=== PATIENT | male | born 1975 | race Caucasian/White ===

== ENCOUNTER → 2016-05-02 | Outpatient (CLI) | payer BC ==
[~2016-05-02] MED LIST: ATV5 PO; GABA-112 PO; GLC500 PO; PRLSR20 PO
--- NOTE | 2016-05-02 16:31 | DIAGNOSTIC IMAGING REPORT ---
KUB HISTORY: N20.0 [id number] COMPARISON: KUB 10/01/2014. FINDINGS: The bowel gas pattern is unremarkable. There are no dilated loops of small bowel to suggest an obstruction. No renal calculi. No ureteral calculi. Calcifications in the deep pelvis likely represent phleboliths. These remain unchanged. No pneumoperitoneum or pneumatosis. IMPRESSION: No renal or ureteral stones. Electronically signed by: Tonio Parra M.D. 05/02/2016 4:30 PM Dictated Date/Time: 05/02/2016 4:29 PM
== END | disposition home or self-care (01) ==
LOC: C.RAD 15:54
PROVIDERS: ATTEND Urology
DX: N20.0 Calculus of kidney (principal)

== ENCOUNTER → 2016-05-10 | Outpatient (CLI) | payer BC ==
--- NOTE | 2016-05-10 11:44 | DIAGNOSTIC IMAGING REPORT ---
ULTRASOUND RIGHT UPPER QUADRANT ABDOMEN CLINICAL HISTORY: Right upper quadrant abdominal pain. COMPARISON STUDY: Abdominal CT dated 01/10/2014. TECHNIQUE: Real-time, grayscale, and color flow sonography of the right upper quadrant of the abdomen was performed. Images are reviewed in the transverse and longitudinal planes. FINDINGS: Liver: The liver is enlarged and demonstrates heterogeneously increased echotexture consistent with severe hepatic steatosis. Note that this degrades acoustic penetration of liver. There is no intrahepatic biliary ductal dilatation. The main portal vein is patent. Gallbladder: The gallbladder is normal in appearance. No gallstones are identified. There is no gallbladder wall thickening or pericholecystic fluid. A sonographic Andrade's sign is reportedly absent. The common bile duct measures up to 0.5 cm in diameter. Pancreas: Visualized portions of the pancreatic head and body are normal in appearance. The splenic vein is patent. Right kidney: Survey images of the right kidney demonstrate normal size and echotexture. There is no hydronephrosis. Ascites: None. IMPRESSION: 1. No acute sonographic amount is identified. No gallstones are seen. 2. Hepatomegaly and severe hepatic steatosis. Electronically signed by: Ascencion Smith M.D. 05/10/2016 11:43 AM Dictated Date/Time: 05/10/2016 11:42 AM
== END | disposition home or self-care (01) ==
LOC: C.ULTR 11:08
PROVIDERS: ATTEND Physician Assistant
DX: R10.11 Right upper quadrant pain (principal); R16.0 Hepatomegaly, not elsewhere classified; K76.0 Fatty (change of) liver, not elsewhere classified

== ENCOUNTER → 2017-04-29 | Day surgery (SDC) | payer BC ==
[2017-04-16 15:09] VITALS: BMI 37.0
--- NOTE | 2017-04-16 15:35 | PAT Medication Instructions ---
Service Date Apr 16, 2017. Current Home Medication List Fenofibrate (Tricor), 54 MG PO QPM Ibuprofen Tab (Advil), 400 MG PO QD PRN for Pain Krill Oil (Krill Oil), 1 CAP PO QAM Metformin HCl (Metformin HCl), 1 TAB PO QPM Multivitamin (Multivitamin), 1 TAB PO QAM Omeprazole (Prilosec), 20 MG PO QAM Potassium Citrate (Alkalinizer (Potassium Citrate ER), 1 TAB PO BID Medication Instructions For Your Scheduled Surgery -Contact your surgeon for instructions for: Ibuprofen Tab (Advil), 400 MG PO QD PRN for Pain - Hold the following medications 2 weeks prior to surgery: Krill Oil (Krill Oil), 1 CAP PO QAM - Hold the following medications the night before surgery: Fenofibrate (Tricor), 54 MG PO QPM - Hold the following medications the morning of surgery: Potassium Citrate (Alkalinizer (Potassium Citrate ER), 1 TAB PO BID Multivitamin (Multivitamin), 1 TAB PO QAM - Take the following medications the morning of surgery with a sip of water: Omeprazole (Prilosec), 20 MG PO QAM - Take the following medications as scheduled the night before surgery: Metformin HCl (Metformin HCl), 1 TAB PO QPM Potassium Citrate (Alkalinizer (Potassium Citrate ER), 1 TAB PO BID If you have any questions please call us at [phone] or [phone] or [phone]
[2017-04-16 16:42] LABS: CALCIUM 9.1 mg/dl (8.5-10.1); CREATININE 0.98 mg/dl (0.60-1.40); POTASSIUM 4.6 mmol/L (3.5-5.1)
[2017-04-16 16:45] LABS: HEMATOCRIT 42.6 % (42-52); HEMOGLOBIN 14.1 g/dL (14.0-18.0); MEAN CELL VOLUME 87.5 fL (80-100); MEAN CORPUSCULAR HGB CONC 33.1 g/dl (32-36); PLATELET COUNT 397 K/uL (130-400); RED CELL DISTRIBUTION WIDTH CV 14.2 % (11.5-14.5); RED CELL DISTRIBUTION WIDTH SD 45.2 fL (36.4-46.3); WHITE BLOOD COUNT 8.25 K/uL (4.8-10.8)
[2017-04-16 17:06] LABS: BASO % 0.5 %; BASO ABS # 0.04 K/uL (0-0.2); EOS % 4.4 %; EOS ABS # 0.36 K/uL (0-0.5); IG# 0.02 K/uL (0.00-0.02); LYMPH % 27.8 %; LYMPH ABS # 2.29 K/uL (1.2-3.4); MONO % 15.4 %; MONO ABS # 1.27 K/uL (0.11-0.59); NEUT % 51.7 %; NEUT ABS # 4.27 K/uL (1.4-6.5)
[~2017-04-29] VITALS: Ht 167.6 cm; Wt 105.5 kg
[~2017-04-29] MED LIST changes: +ATROPINE SULFATE 0.1 MG/ML 5ML SYR IV PRN; -ATV5 PO; +BACITRACIN 50000 UNIT VIAL ONE; +BUPIVACAINE 0.5 % 5 MG/1 ML MPF 30ML VIAL ONE; +DEXAMETHASONE SOD INJ 4 MG/ML VIAL ONE; +EpHEDrine SULFATE INJ 50 MG/ML AMP IV PRN; +FENO54TA PO; +FENTANYL CITRATE INJ 50 MCG/1 ML 2 ML VIAL ONE; -GABA-112 PO; +GLYCOPYRROLATE INJ 0.2 MG/ML VIAL ONE; +HYDROmorphone INJ 0.5 MG/0.5 ML SYR IV PRN; +IBUP-103 PO; +KETOROLAC TROMETHAMINE 30 MG/ML VIAL ONE; +KRIL1000 PO; +LACTATED RINGER'S 1000ML 1,000 ML IV SCH; +LACTATED RINGER'S 1000ML 500 ML IV SCH; +LIDOCAINE 2% 20 MG/ML 5ML SYR IV ONE; +MIDAZOLAM HCL 1 MG/ML 2ML VIAL ONE; +MULT-506 PO; +MoRPHine SULFATE 2 MG/ML CARP IV PRN; +NEOSTIGMINE METHYLSULFATE 5 MG/5 ML SYR ONE; +ONDANSETRON INJ 2 MG/ML 2 ML VIAL IV PRN; +ONDANSETRON INJ 2 MG/ML 2 ML VIAL ONE; +OXYC-57 PO; +OXYCODONE/ACETAMINOPHEN 5-325 TAB ONE; +OXYCODONE/ACETAMINOPHEN 5-325 TAB PO PRN; +PHENYLEPHRINE 100MCG/ML 5ML SYR IV PRN; +PHENYLEPHRINE HCL INJ 10 MG/ML VIAL ONE; +POTA1080 PO; +PROPOFOL IV EMULSION 10 MG/ML 20 ML VIAL IV ONE; +ROCURONIUM BROMIDE 10 MG/ML 5 ML VIAL IV ONE
[2017-04-29 05:49] VITALS: BP 141/87; PULSE 97; TEMP 36.9; O2SAT 97; Ht 167.6 cm; Wt 105.5 kg
--- NOTE | 2017-04-29 06:32 | History & Physical Bridge Note ---
H&P Re-Evaluation Bridge Note: I have examined the patient, reviewed the History & Physical and in the interval since the performance of the History & Physical I have noted the following changes of clinical significance: No changes noted states hernia bothering him more lately, SO at bedside, pt marked, all questions answered
--- NOTE | 2017-04-29 08:16 | [facility] Post Operative Brief Note ---
Immediate Operative Summary Operative Date Apr 29, 2017. Pre-Operative Diagnosis Right inguinal hernia Post-Operative Diagnosis right direct ing hernia and lipoma cord Procedure(s) Performed right direct ing hernia repair and axcision lipoma cord(marlex mesh tension free) Surgeon Dr Shepherd Dispatch Manager Surgeon(s) Conor Ortiz PA-C Estimated Blood Loss 5cc Findings See Below large lipoma cord and direct ing hernia Specimens A. Lipoma of cord (right) B. Right inguinal hernia sac
--- NOTE | 2017-04-29 08:33 | Discharge Instructions ---
Discharge Instructions Date of Service Apr 29, 2017. Visit Reason for Visit: Right Inguinal Hernia, Diabetes Discharge Discharge Diagnosis / Problem: hernia repair Discharge Goals Goal(s): Decrease discomfort Activity Recommendations Activity Limitations: as noted below Lifting Limitations: no more than 10 pounds Shower/Bathe: tomorrow Driving or Machine Use: resume 3 days after discharge (if not thaving pain) Anesthesia . Post Anesthesia Instructions: If you have had General Anesthesia or IV Sedation: * Do not drive today. * Resume driving when surgeon permits. * Do not make important decisions or sign legal documents today. * Call surgeon for: 1. Temperature elevations greater than 101 degrees F. 2. Uncontrollable pain. 3. Excessive bleeding. 4. Persistent nausea and vomiting. 5. Medication intolerance (nausea, vomiting or rash). * For nausea and vomiting use only clear liquids such as: tea, soda, bouillon until nausea subsides, then gradually increase diet as tolerated. * If you have any concerns or questions, call your surgeon's office. If physician is unavailable and it is an emergency, call 911 or go to the nearest emergency room. . Instructions / Follow-Up Instructions / Follow-Up Dr. Shepherd in 1 week, call [phone] if you have any questions or need to schedule an appt Ice right groin off and on alternating every 20 minutes until bedtime Diet Recommendations Recommended Home Diet: no limitations Procedures Procedures Performed: right direct ing hernia repair and axcision lipoma cord(marlex mesh tension free) Pending Studies Studies pending at discharge: no Medical Emergencies . Who to Call and When: Medical Emergencies: If at any time you feel your situation is an emergency, please call 911 immediately. . Non-Emergent Contact Non-Emergency issues call your: Surgeon Call Non-Emergent contact if: you have a fever, temperature is above 101.5, your pain is not controlled, wound has increased redness, you have any medication questions . . "Provider Documentation" section prepared by Conor Ortiz. .
--- NOTE | 2017-04-29 08:45 | OPERATIVE REPORT ---
DATE OF OPERATION: 04/29/2017 SURGEON: Dr. Shepherd. SOFT WORK CIGAR MACHINE OPERATOR: Shahbaz Ortiz PA-C. PREOPERATIVE DIAGNOSIS: Symptomatic right inguinal hernia. POSTOPERATIVE DIAGNOSES: Right direct inguinal hernia and large lipoma of the cord. PROCEDURE: Right direct inguinal hernia repair and excision of lipoma of the cord. SUMMARY: The patient was brought into the operating room. Under general anesthesia, the right lower quadrant was prepped with scrubbing solution and properly draped. Preemptive local analgesia 0.5% Sensorcaine without epinephrine was used to infiltrate 2 fingerbreadths medial and anterior superior iliac crest. An incision was made parallel to the inguinal ligament, deepened through subcutaneous tissue. The incision was about 3 inches long. Once we entered the subcutaneous tissue, we had significant amount of fatty tissue before we got to the superficial body fascia and Hope's fascia and dissected further down onto the external oblique, just one small vein that was prominent, we ligated with 2-0 silk. The external oblique was opened along the course of its fiber after we had used more local anesthetic underneath it, elevated over hemostats and we opened it to the external ring. When we identified the external ring, the patient had significant amount of fatty tissue in the external ring but most likely hard to reduce. The patient was quite obese, in fact there were about 4 inches of subcutaneous fatty tissue before we saw the external oblique fascia. Two Weitlaners had been inserted and a large Ferreira was inserted. We at this point elevated the cord and its structure and found significant lipomatous tissue originated along the cord, which we ligated at its takeoff at the internal ring with 2-0 silk. Then, the patient had significant other lipomatous tissue that was coming out through the direct area. As we were freeing this up, we were able then to elevate it more and he had more tissue coming out of the internal ring, which we ligated and resected. Once we had accomplished this, we could find the patient had a direct defect. We closed it, reapproximated some transversalis fascia with 3-0 silk just to get it out of the way. We then brought a sheet of Marlex mesh, accordingly cut it, sutured it onto the symphysis pubis, shelving portion of the inguinal ligament, conjoined tendon superiorly. We identified the ilioinguinal nerve and took it out of the way underneath hemostats and placed along the cord structures and reconstructed the internal ring that could only accommodate a hemostat. The area was then checked for hemostasis and appeared satisfactory. More local anesthesia was used. We closed the external oblique over the mesh and the cord with interrupted 3-0 silk suture, reconstructing the external ring. Subcutaneous tissue was checked for hemostasis and appeared satisfactory. The wound was closed with 2-0 Dexon and erika for skin edges. Dressing was applied. Procedure was tolerated well by the patient. Estimated blood loss approximately 5 mL. The patient was taken to recovery room in good condition. I attest to the content of the Intraoperative Record and any orders documented therein. Any exceptions are noted below. MTDD
--- NOTE | 2017-04-29 09:11 | Anesthesiology Progress Note ---
Anesthesia Post Op Note Date & Time Apr 29, 2017 at 09:11 Vital Signs Pain Intensity: 0 Vital Signs Past 12 Hours Date Time Temp Pulse Resp B/P (MAP) Pulse Ox O2 Delivery O2 Flow Rate FiO2 04/29/17 09:00 82 14 130/84 99 Oxymask 10 04/29/17 08:50 82 14 122/83 98 Oxymask 10 04/29/17 08:40 36.2 89 14 127/83 99 Oxymask 10 04/29/17 05:49 36.9 97 20 141/87 (105) 97 Room Air Notes Mental Status: alert / awake / arousable, participated in evaluation Pt Amnestic to Procedure: Yes Nausea / Vomiting: adequately controlled Pain: adequately controlled Airway Patency, RR, SpO2: stable & adequate BP & HR: stable & adequate Hydration State: stable & adequate Anesthetic Complications: no major complications apparent
[2017-04-29 09:29] VITALS: BP 122/84; PULSE 80; TEMP 36.5; O2SAT 98
[2017-04-29 09:59] VITALS: BP 121/84; PULSE 85; O2SAT 96
[2017-04-29 10:29] VITALS: BP 125/80; PULSE 80; TEMP 36.6; O2SAT 96
== END | disposition home or self-care (01) ==
LOC: C.ACU 05:19
PROVIDERS: ATTEND Surgery
DX: K40.90 Unilateral inguinal hernia, without obstruction or gangrene, not specified as recurrent (principal); D17.6 Benign lipomatous neoplasm of spermatic cord; Z68.37 Body mass index [BMI] 37.0-37.9, adult; E11.9 Type 2 diabetes mellitus without complications; E66.9 Obesity, unspecified; E78.5 Hyperlipidemia, unspecified; Z98.890 Other specified postprocedural states; Z87.891 Personal history of nicotine dependence; Z80.9 Family history of malignant neoplasm, unspecified; Z83.3 Family history of diabetes mellitus

== ENCOUNTER 2024-10-11 07:10 | Observation (INO) ==
--- NOTE | 2024-09-13 14:20 | PAT Medication Instructions ---
Medication Instructions Date of Service September 13, 2024 Home Medications Medication Instructions Recorded ibuprofen 600 mg tablet 600 mg PO Q8H PRN pain #40 tabs 08/04/24 ibuprofen 600 mg tablet 600 mg PO Q8H PRN apremilast 30 mg tablet (Otezla) 30 mg PO BID ascorbic acid (vitamin C) 500 mg tablet (Vitamin C) 500 mg PO Q OTHER DAY clonazepam 1 mg tablet (Klonopin) 0.5 mg PO UD PRN ezetimibe 10 mg tablet 10 mg PO QAM ferrous sulfate 325 mg (65 mg iron) tablet 325 mg PO Q OTHER DAY lisinopril 2.5 mg tablet 2.5 mg PO HS metformin 500 mg tablet 500 mg PO BID multivitamin 1 tab PO QAM omega 7-mre-cwb-fish oil 1,000 mg (120 mg-180 mg) capsule (Fish Oil) 1 cap PO DAILY omeprazole 20 mg tablet,delayed release 20 mg PO QAM Continue as directed clonazepam 1 mg tablet (Klonopin) 0.5 mg PO UD PRN(if needed) ASK your surgeon for instructions ibuprofen 600 mg tablet 600 mg PO Q8H PRN ASK your prescriber and surgeon apremilast 30 mg tablet (Otezla) 30 mg PO BID STOP taking 2 weeks before surgery (or as soon as possible if surgery is within 2 weeks) omega 0-kyj-lwo-fish oil 1,000 mg (120 mg-180 mg) capsule (Fish Oil) 1 cap PO DAILY DO NOT take the morning of surgery ascorbic acid (vitamin C) 500 mg tablet (Vitamin C) 500 mg PO Q OTHER DAY ferrous sulfate 325 mg (65 mg iron) tablet 325 mg PO Q OTHER DAY metformin 500 mg tablet 500 mg PO BID multivitamin 1 tab PO QAM Take morning of surgery With a small sip of water, OTHERWISE NOTHING TO EAT OR DRINK AFTER MIDNIGHT: ezetimibe 10 mg tablet 10 mg PO QAM omeprazole 20 mg tablet,delayed release 20 mg PO QAM Take evening before surgery lisinopril 2.5 mg tablet 2.5 mg PO HS metformin 500 mg tablet 500 mg PO BID Other Notes If you have any questions please call us at [phone] or [phone] or [phone] or [phone]
--- NOTE | 2024-09-21 12:48 | Anesthesiology Consultation ---
Date of Service September 21, 2024 Assessment & Plan (1) Encounter for pre-operative examination: Plan - check BSG am DOS. - diabetes: patient notes two weeks of oral/IM steroids for right hip pain with last dose mid-June-he states home readings returned to his normal range after 1 week. A1c 7.2%, surgeon's office made aware. - Outpatient joint assessment: Patient is currently scheduled for inpatient pathway. If re-evaluated and patient/surgeon requests outpatient pathway, patient is acceptable candidate for outpatient joint program from anesthesia standpoint pending surgeon's office assessment of pt motivation/support/completion of same day joint program preop requirements. Chart Review Chart Review: Acceptable Risk for Surgery and Patient seen in Pre Admission Testing Teaching & Discussion Pre-Anesthesia Teaching/Discussion Notes: Instructed NPO after midnight before surgery, except medications with 15 cc of water. Medication instructions provided according to the PAT guidelines. History Surgery Operation Date: 10/11/24 12:15 Proposed Procedures p Right Anterior Total Hip Arthroplasty - Stefano Mcfadden, DO Height/Weight Height: 5 ft 6 in Weight: 114.4 kg Allergies Allergy/AdvReac Type Severity Reaction Status Date / Time doxepin AdvReac Intermediate EXTREME Verified 09/13/24 07:48 EXHAUSTION Medications Home Medications Medication Instructions Recorded Confirmed Last Taken ibuprofen 600 mg tablet 600 mg PO Q8H PRN pain #40 tabs 08/04/24 09/13/24 Unknown apremilast 30 mg tablet (Otezla) 30 mg PO BID 09/13/24 09/13/24 Unknown ascorbic acid (vitamin C) 500 mg 500 mg PO Q OTHER DAY 09/13/24 09/13/24 Unknown tablet (Vitamin C) clonazepam 1 mg tablet (Klonopin) 0.5 mg PO UD PRN Anxiety 09/13/24 09/13/24 Unknown ezetimibe 10 mg tablet 10 mg PO QAM 09/13/24 09/13/24 Unknown ferrous sulfate 325 mg (65 mg 325 mg PO Q OTHER DAY 09/13/24 09/13/24 Unknown iron) tablet lisinopril 2.5 mg tablet 2.5 mg PO HS 09/13/24 09/13/24 Unknown metformin 500 mg tablet 500 mg PO BID 09/13/24 09/13/24 Unknown multivitamin 1 tab PO QAM 09/13/24 09/13/24 Unknown omega 1-cnt-all-fish oil 1,000 mg 1 cap PO DAILY 09/13/24 09/13/24 Unknown (120 mg-180 mg) capsule (Fish Oil) omeprazole 20 mg tablet,delayed 20 mg PO QAM 09/13/24 09/13/24 Unknown release Past Medical History Medical History (Updated 09/21/24 @ 14:49 by Neetu Damon PA-C) Anxiety Arthritis Diabetes lisinopril for this for kidney protection, not HTN per pt GERD (gastroesophageal reflux disease) controlled, stable per pt History of COVID-19 (~2020) 2020 > hospitalized for 11 days [facility] [place] > residual dyspnea on exertion History of kidney stones passed on own Hyperlipidemia Low iron Psoriatic arthritis Short of breath on exertion feels was related to long covid, no asthma or copd dx-denies change or worsening Patient denies h/o stroke, seizures, heart attack, heart failure, HTN, blood clots/DVTs or blood transfusions. Exercise / Class Metabolic Activity II 4-5 Yardwork/Stairs/Walk up hill (denies chest discomfort or shortness of breath with one flight of stairs) Past Family History Family History Father History of anesthesia reaction father felt like he was "out of body" after a back sx one time Past Surgical History Surgical History History of carpal tunnel release bilat History of colonoscopy History of esophagogastroduodenoscopy (EGD) Hx of inguinal hernia repair Past Anesthesia History No Hx of Anesthesia Complications History of PONV No Hx of PONV and No Hx of Motion Sickness Social History Smoking Status: Former smoker (quit 2005) Do You Dip or Chew Tobacco: No Smoking End Date: 19 yrs ago Hx Alcohol Use: Yes alcohol intake frequency: holidays/special occasions only Hx Substance Use: No substance use type: does not use Review of Systems Snoring, denies witnessed apneas. Patient denies chest pain, fever, chills, cough, wheezing, or palpitations. Physical Exam Vital Signs Vitals BP 137/84 P 91 TEMP 98.3 SP02 96% on RA RESP 18 Physical Patient resting comfortably in chair in no acute distress, alert and oriented, responding appropriately throughout visit Full cervical extension range of motion without pain TMD 3.5 finger breadths Mallampati Score 2 Dentition: several crowns, denies chipped or loose teeth, caps, implants or bridges Lungs: normal respiratory effort. Good air movement, clear throughout to auscultation, no adventitious breath sounds Cardiac: regular rate and rhythm, no murmurs noted Carotid arteries: negative bruit bilat Lab Results Anesthesia Preop Results Results Anesthesia Widget: WBC 7.53 K/ul (4.8-10.8) 09/21/24 Hgb 14.7 g/dl (14.0-18.0) 09/21/24 Hct 43.8 % (42.0-52.0) 09/21/24 Plt 391 K/uL (130-400) 09/21/24 Na 138 mmol/L (136-145) 09/21/24 K 4.3 mmol/L (3.5-5.1) 09/21/24 Cl 101 mmol/L (98-107) 09/21/24 CO2 31 mmol/L (21-32) 09/21/24 BUN 10 mg/dl (6-23) 09/21/24 Creat 0.75 mg/dl (0.6-1.4) 09/21/24 Glucose Level 126 mg/dl (70-99(Fasting)) H 09/21/24 PT 10.4 Seconds (9.0-12.0) 09/21/24 PTT 32 Seconds (21-31) H 09/21/24 INR 1.0 (0.9-1.1) 09/21/24 HA1c 7.2 % (4.5-5.6) H 09/21/24 Blood Type A Negative 09/21/24 Antibody Screen NEGATIVE 09/21/24 Testing Electrocardiogram Date: 09/21/24 NSR with sinus arrhythmia, rate 95 bpm Chest X-Ray Date: 09/21/24 1. No active pulmonary disease. 2. Heart size is borderline enlarged.
--- NOTE | 2024-10-06 16:20 | History & Physical Report ---
Date of Service October 06, 2024 Assessment & Plan (1) Avascular necrosis of bone of right hip: We will proceed with a right anterior total of arthroplasty. Postoperatively, he will be started on aspirin for DVT prophylaxis and kept overnight in the hospital for postoperative medical management. He plans to use energy physical therapy at discharge. History of Present Illness Chief Complaint: Avascular necrosis of the right hip. Primary Care Provider: Quintin Velez is a pleasant 49-year-old male who has been dealing with chronic increasing right hip and groin pain. It has been going on for months. It has been getting worse recently. He saw another provider. He had an MRI, which showed avascular necrosis of his right hip. After failing conservative treatment, he has elected to proceed with a right anterior total of arthroplasty. Allergies Allergy/AdvReac Type Severity Reaction Status Date / Time doxepin AdvReac Intermediate EXTREME Verified 09/13/24 07:48 EXHAUSTION Home Medications Medication Instructions Recorded Confirmed Type ibuprofen 600 mg tablet 600 mg PO Q8H PRN pain #40 tabs 08/04/24 09/13/24 Rx apremilast 30 mg tablet (Otezla) 30 mg PO BID 09/13/24 09/13/24 History ascorbic acid (vitamin C) 500 mg 500 mg PO Q OTHER DAY 09/13/24 09/13/24 History tablet (Vitamin C) clonazepam 1 mg tablet (Klonopin) 0.5 mg PO UD PRN Anxiety 09/13/24 09/13/24 History ezetimibe 10 mg tablet 10 mg PO QAM 09/13/24 09/13/24 History ferrous sulfate 325 mg (65 mg 325 mg PO Q OTHER DAY 09/13/24 09/13/24 History iron) tablet lisinopril 2.5 mg tablet 2.5 mg PO HS 09/13/24 09/13/24 History metformin 500 mg tablet 500 mg PO BID 09/13/24 09/13/24 History multivitamin 1 tab PO QAM 09/13/24 09/13/24 History omega 6-fnp-bun-fish oil 1,000 mg 1 cap PO DAILY 09/13/24 09/13/24 History (120 mg-180 mg) capsule (Fish Oil) omeprazole 20 mg tablet,delayed 20 mg PO QAM 09/13/24 09/13/24 History release Past Med/Surg History Problem List Encounter for pre-operative examination Avascular necrosis of bone of right hip Pain of right hip Calcific tendinitis of right hip Right groin pain Trapezius muscle spasm Postural kyphosis, thoracic region Calcific tendonitis of left shoulder Medical History Psoriatic arthritis Short of breath on exertion feels was related to long covid, no asthma or copd dx-denies change or worsening History of COVID-19 (~2020) 2020 > hospitalized for 11 days [facility] [place] > residual dyspnea on exertion Arthritis History of kidney stones passed on own GERD (gastroesophageal reflux disease) controlled, stable per pt Low iron Anxiety Diabetes lisinopril for this for kidney protection, not HTN per pt Hyperlipidemia Surgical History History of carpal tunnel release bilat History of esophagogastroduodenoscopy (EGD) History of colonoscopy Hx of inguinal hernia repair Family History Father History of anesthesia reaction father felt like he was "out of body" after a back sx one time Social History Smoking Status: Former smoker (quit 2005) Smoking End Date: 19 yrs ago; Second Hand Exposure: No; Do You Dip or Chew Tobacco: No; Tobacco Cessation Education Requested by Patient: No Hx Alcohol Use: Yes Hx Substance Use: No Preferred Language: Luxembourgish Communication Ability: Effective Urgent Care Nurse Practitioner Required: No Beliefs That Will Affect Care: None Current Living Situation: Spouse Other Information That Helps Us Care for You: No Feels Safe at Home: Yes Safety Concerns: Feels Safe At This Time Assistive Devices: Glasses Review of Systems All systems reviewed & are unremarkable except as noted in HPI & below. Physical Exam On physical exam of the right hip, he has decreased range of motion. He is pain with internal/external rotation. All of his pains located in the groin. Constitutional WD/WN, vitals as above Eyes PERRL, conjunctivae normal, anicteric sclerae ENMT external ear and nose normal, oropharynx normal Neck trachea midline, no thyromegaly Respiratory normal respiratory effort Cardiovascular RRR, no murmur, no edema Gastrointestinal (Abdomen) normal bowel sounds, soft, nontender, no hepatosplenomegaly Psychiatric A+Ox3, euthymic affect Results & Data Results & Data Laboratory Results . Diagnostic Findings X-rays of the right hip show signs of avascular necrosis. MRI of the right hip confirms avascular necrosis with a little bit of early collapse.. . PG Care Time/CCT Total # of Minutes Spent Total Time Spent with Patient: Total time spent is greater than 50% in coordination of care (as documented) at patient's floor/unit and/or counseling patient: Coding Level of Care Code None Diagnoses Avascular necrosis of bone of right hip M87.051
--- NOTE | 2024-10-11 06:01 | History & Physical Bridge Note ---
Date of Service October 11, 2024 History & Physical Bridge Note I have examined the patient, reviewed the History & Physical and in the interval since the performance of the History & Physical I have noted the following changes of clinical significance: no changes noted
[~2024-10-11 07:10] MED LIST changes: -ATROPINE SULFATE 0.1 MG/ML 5ML SYR IV PRN; -BACITRACIN 50000 UNIT VIAL ONE; -BUPIVACAINE 0.5 % 5 MG/1 ML MPF 30ML VIAL ONE; +BUPIVACAINE 0.5 % 5 MG/1 ML PF 10ML VIAL ONE; -DEXAMETHASONE SOD INJ 4 MG/ML VIAL ONE; -EpHEDrine SULFATE INJ 50 MG/ML AMP IV PRN; -FENO54TA PO; -FENTANYL CITRATE INJ 50 MCG/1 ML 2 ML VIAL ONE; -GLC500 PO; -GLYCOPYRROLATE INJ 0.2 MG/ML VIAL ONE; -HYDROmorphone INJ 0.5 MG/0.5 ML SYR IV PRN; -IBUP-103 PO; -KETOROLAC TROMETHAMINE 30 MG/ML VIAL ONE; -KRIL1000 PO; -LACTATED RINGER'S 1000ML 1,000 ML IV SCH; -LACTATED RINGER'S 1000ML 500 ML IV SCH; -LIDOCAINE 2% 20 MG/ML 5ML SYR IV ONE; -MIDAZOLAM HCL 1 MG/ML 2ML VIAL ONE; -MULT-506 PO; -MoRPHine SULFATE 2 MG/ML CARP IV PRN; -NEOSTIGMINE METHYLSULFATE 5 MG/5 ML SYR ONE; -ONDANSETRON INJ 2 MG/ML 2 ML VIAL IV PRN; -ONDANSETRON INJ 2 MG/ML 2 ML VIAL ONE; -OXYC-57 PO; -OXYCODONE/ACETAMINOPHEN 5-325 TAB ONE; -OXYCODONE/ACETAMINOPHEN 5-325 TAB PO PRN; -PHENYLEPHRINE 100MCG/ML 5ML SYR IV PRN; -PHENYLEPHRINE HCL INJ 10 MG/ML VIAL ONE; -POTA1080 PO; -PRLSR20 PO; -PROPOFOL IV EMULSION 10 MG/ML 20 ML VIAL IV ONE; -ROCURONIUM BROMIDE 10 MG/ML 5 ML VIAL IV ONE
[2024-10-11] MEDS: LR 60ML/HR IV SCH (07:37)
[2024-10-11] MEDS: FAMOTIDINE 20 MG TAB PO SCH (07:37)
[2024-10-11] MEDS: dexAMETHasone**PF** 10 MG/ML VIAL IV SCH (07:38)
[2024-10-11] MEDS: ACETAMINOPHEN 500 MG TAB PO SCH ×2 (07:38→13:02)
[2024-10-11] MEDS: LR 500ML BOLUS, THEN 15ML/HR IV SCH (07:38)
[2024-10-11] MEDS: GABAPENTIN 900 MG DOSE PO SCH (07:38)
[2024-10-11] MEDS ORDERED: MIDAZOLAM HCL 1 MG/ML 2ML VIAL ONE ×2 (08:03→09:11)
[2024-10-11] MEDS ORDERED: LIDOCAINE 2% 2 ML VIAL/AMP(20MG/ML) INFIL ONE (08:32)
[2024-10-11] MEDS ORDERED: PROPOFOL IV EMULSION 10 MG/ML 20 ML VIAL IV ONE (08:32)
[2024-10-11] MEDS ORDERED: ATROPINE SULFATE 0.1 MG/ML 10ML SYR IV PRN (08:51)
[2024-10-11] MEDS ORDERED: ONDANSETRON INJ 2 MG/ML 2 ML VIAL IV PRN ×2 (08:51→12:32)
[2024-10-11] MEDS: TRANEXAMIC ACID 1,000 MG **IV Pre-op IV SCH (08:57)
[2024-10-11] MEDS ORDERED: KETAMINE HCL 10MG/ML SYR ONE (09:11)
[2024-10-11] MEDS ORDERED: GLYCOPYRROLATE 0.2 MG/ML VIAL ONE (09:35)
[2024-10-11] MEDS: ORTHO JOINT ANESTHETIC ONE (09:48)
[2024-10-11] MEDS: ROPIV 0.5% 246mg, Ketorolac 30mg, EPINEPHrine 0.5mg in NSS INFIL SCH (10:30)
--- NOTE | 2024-10-11 10:33 | Operative Report ---
PG Post Operative Report Pre & Post Diagnosis Operation Date: 10/11/24 09:00 Pre-Op Diagnosis: Avascular necrosis of bone of right hip Post-Op Diagnosis: Avascular necrosis of bone of right hip I identified the patient and participated in the time-out.: Yes Procedure Operation Date: 10/11/24 09:00 Actual Procedures p Right Anterior Total Hip Arthroplasty(Right) - Stefano Mcfadden DO Surgeon Stefano Mcfadden DO Procedure Rn Dajuan Pearce PA-C Estimated Blood Loss 200 Findings Consistent with Post-Op Diagnosis Specimens Right femoral head Description of Procedure Implants used I used a [employer]immer[employer]omet total hip arthroplasty system with a size 3 standard offset Z1 stem, a 52 mm G7 cup, an E1 polyethylene liner, a 36 mm ceramic head with a 0 neck. Brien arrived at the hospital for the above procedure. He was seen in the preoperative holding area and the operative extremity was identified and signed. He was given a spinal anesthetic, a preoperative antibiotic, and TXA. He was then taken back to the operating room and laid on the table in the supine position. He was given basic sedation. The operative leg was secured to a Puristst leg positioner. The hip was then prepped and draped in sterile fashion. A timeout was done and the patient and the operative extremity was properly identified. An anterior approach was used. Dissection was taken down through the fascia and the tensor muscle belly was retracted laterally and the rectus was retracted medially. The circumflex vessels were identified and ligated. The capsule was then incised and tagged for later repair. The femoral neck was then cut and the femoral head was removed. The acetabulum was exposed. Time was spent doing a complete circumferential labral release. Sequential reaming of the acetabulum up to a size 51 reamer was done. Final reamings were done under fluoroscopy to ensure appropriate version. A Biomet 52 mm G7 cup was then impacted into place. The E1 polyethylene liner was then snapped into place. Surrounding soft tissues were then injected with 100 cc of an orthopedic pain control cocktail. The proximal femur was then exposed. Sequential broaching up to a size 3 broach was done. Off that broach a size 36 head with a 0 neck was trialed. The hip was reduced and fluoroscopic images showed anatomic alignment of the implants in acceptable length. The broach was removed. The final size 3 standard offset Z1 stem was then impacted into place. A ceramic 36 mm head with a 0 neck was then impacted onto the stem and the hip was reduced. Final fluoroscopic images showed anatomic alignment of the hip. The capsule was then closed with #1 Vicryl suture. A dilute betadyne lavage was then done for 3 minutes. The joint was then irrigated with normal saline solution. The fascia was closed with #1 PDS suture. Skin was closed with 2-0 Vicryl, [place] zip line, and a Silverlon dressing. He was then transferred to a hospital bed and taken to the post anesthesia care unit in stable condition. He tolerated the procedure well. Dajuan Pearce PA-C, was present for the entire procedure. He was critical for patient positioning, prepping, draping, retraction exposure, wound closure and application of sterile dressing. I attest to the content of the Intraoperative Record and any orders documented therein. Any exceptions are noted below.
--- NOTE | 2024-10-11 10:40 | Fluoroscopy Report ---
INTRAOPERATIVE RADIOGRAPH CLINICAL HISTORY: Right hip arthroplasty placement. Fluoro time: 19 seconds Ka,r: 4.47 mGy FINDINGS: A single spot fluoroscopic view of the right hip is correlated with x-rays dated 06/18/2024. A bipolar right hip arthroplasty is in near anatomic alignment. There is no evidence of acute fractur e on the provided image. IMPRESSION: Intraoperative image from right hip arthroplasty placement. Electronically signed by: Ascencion Smith M.D. 10/11/2024 10:39 AM
--- NOTE | 2024-10-11 11:58 | XRay Report ---
SINGLE VIEW PELVIS; SINGLE VIEW RIGHT HIP CLINICAL HISTORY: Postoperative examination. FINDINGS: An AP portable view of the hips and pelvis with a crosstable lateral portable view of the r ight hip are compared to study dated 06/18/2024. A bipolar right hip arthroplasty is in near-anatomic a lignment. No acute fracture is identified. There are expected postoperative changes overlying the ri ght hip including subcutaneous gas and soft tissue swelling. Mild arthritic change is seen in the lef t hip. There are pelvic phleboliths. IMPRESSION: Expected postoperative findings status post right hip arthroplasty. No acute fracture is seen. ACT 112: Negative or not required by law. Electronically signed by: Ascencion Smith M.D. 10/11/2024 11:57 AM
--- NOTE | 2024-10-11 12:26 | Anesthesiology Progress Note ---
Date of Service October 11, 2024 Anesthesia Post Procedure Vital Signs Vital Signs: Temp Pulse Pulse Resp BP BP Pulse Ox 10/11/24 11:40 94 H 17 123/78 95 10/11/24 11:30 36.4 C L 98 H 18 119/75 95 10/11/24 11:20 100 H 16 116/79 95 10/11/24 11:10 103 H 16 115/74 98 10/11/24 11:01 36.1 C L 104 H 17 116/71 98 10/11/24 07:33 36.8 C 96 H 18 122/92 97 O2 Del Method O2 Flow Rate 10/11/24 11:40 Room Air 10/11/24 11:30 Room Air 10/11/24 11:20 Room Air 10/11/24 11:10 Oxymask 8 10/11/24 11:01 Oxymask 8 10/11/24 07:33 Room Air Pain Intensity Right Hip: Pain Intensity: 6 Notes Mental Status: alert / awake / arousable Patient Amnestic to Procedure: Yes Nausea / Vomiting: adequately controlled Pain: adequately controlled Airway Patency, RR, SpO2: stable & adequate BP & HR: stable & adequate Hydration State: stable & adequate Neuraxial Anesthesia: was administered and sensory block is resolving Anesthetic Complications: no major complications apparent
[2024-10-11] MEDS ORDERED: METOCLOPRAMIDE HCL INJ 5 MG/ML 2 ML VIAL IV PRN (12:32)
[2024-10-11] MEDS ORDERED: NALOXONE HCL 0.4 MG/1 ML VIAL/CARP IV PRN (12:32)
[2024-10-11] MEDS ORDERED: MAGNESIUM HYDROXIDE SUSP 30 ML UDC PO PRN (12:32)
[2024-10-11] MEDS ORDERED: PHARMACY GLYCEMIC MGMT CONSULT PRN (12:32)
[2024-10-11] MEDS ORDERED: GLUCOSE 10 TAB/TUBE PO PRN (12:45)
[2024-10-11] MEDS ORDERED: DEXTROSE 50% 50 ML SYRINGE IV PRN (12:45)
[2024-10-11] MEDS ORDERED: CARBOHYDRATES FOR HYPOGLYCEMIA PO PRN (12:45)
[2024-10-11] MEDS ORDERED: GLUCAGON FOR INJ 1 MG VIAL SQ PRN (12:45)
[2024-10-11] MEDS ORDERED: GLUCOSE 40% GEL 15 GM TUBE PO PRN (12:45)
[2024-10-11] MEDS: SODIUM CHLORIDE 0.9% 1,000 ML IV SCH (12:55)
[2024-10-11] MEDS: LANTUS PER UNIT CHARGE SC ONE (12:55)
[2024-10-11] MEDS: KETOROLAC TROMETHAMINE 15 MG/ML VIAL IV SCH (12:56)
[2024-10-11] MEDS: INSULIN ASPART PER UNIT CHARGE SC SCH (14:06)
--- NOTE | 2024-10-11 14:36 | Pharmacy Report ---
Pharmacy Glycemic Short Note 2 - Date of Service October 11, 2024 - Glycemic Short BSG Results (Last 24 hours): 10/11/24 10/11/24 10/11/24 07:29 11:05 12:52 POC Glucose 139 H 151 H 132 H OUTPATIENT ANTIDIABETIC REGIMEN: * metformin 500 mg bid ASSESSMENT: * 49 year old s/p surgery, POD 0 - pharmacy consulted for glycemic management. Postop BSG 151 mg/dL - did receive IV steroids preoperatively therefore anti cipate steroid induced hyperglycemia. Will give Lantus 0.2 units/kg x 1 now to cover steroid effects. Plan to start novolog weight based stress of 2/3 dosing PLAN FOR INPATIENT GLYCEMIC CONTROL: * Hold outpatient oral diabetes medications * Basal insulin * Lantus 20 units x 1 * Bolus insulin * NovoLog per scale ACHS or Q6hrs while NPO * Goal Range: Low 110 mg/dL - High 140 mg/dL * Correction Factor: 20 mg/dL/unit * Nutritional / Prandial insulin per carb ratio of 1 unit per 6 grams CHO consumed
[2024-10-11] MEDS: DOCUSATE SODIUM 100 MG CAP PO SCH (20:44)
[2024-10-11] MEDS: ASPIRIN 81 MG ECTAB PO SCH (20:44)
[2024-10-11] MEDS: SENNA 8.6 MG TAB PO SCH (20:45)
[2024-10-11] MEDS: HYDROmorphone INJ 0.5 MG/0.5 ML SYR IV PRN (22:23)
[2024-10-12 07:32] VITALS: BP 99/64; RESP 18; TEMP 97.7; O2SAT 96
[2024-10-12] MEDS: EZETIMIBE 10 MG TAB PO SCH (07:33)
[2024-10-12] MEDS: MULTIVITAMIN TAB PO SCH (07:33)
[2024-10-12] MEDS: LANTUS PER UNIT CHARGE SC SCH (08:39)
--- NOTE | 2024-10-12 08:46 | Orthopedic Progress Note ---
Date of Service October 12, 2024 Assessment & Plan (1) S/P total right hip arthroplasty: * Continue Current Treatment * Disposition: home * Daily treatment: Physical Therapy/ Occupational Therapy per protocol * Weight bearing status: WBAT, no precautions * Continue to monitor for ABLA * Pain control * DVT prophylaxis, ASA * Office/hospital f/u 2 weeks for progress check and staple/suture removal * Plan for discharge today pending PT/OT clearance Subjective .Active Problems: S/p right LON POD 1 49 y/o male s/p right LON. Doing well overall, pain managed and improved function. Denies fever/chills, chest pain/SOB, nausea/vomiting. Otherwise no complaints. Review of Systems All systems reviewed & are unremarkable except as noted in HPI & below. Physical Exam . * General: Alert and oriented, no acute distress * Constitutional: well-developed, well-nourished. * Respiratory: Normal respiratory effort, no distress * Gastrointestinal: No tenderness to palpation, no rigidity or guarding. * Skin: No rash or lesion. * Neurologic: Grossly normal * Musculoskeletal: Right hip surgical dressing CDI, not removed for exam. Otherwise no obvious deformity or overlying skin changes. Diffuse TTP proximal thigh and hip region. Otherwise no specific tenderness of distal thigh, lower leg, foot/ankle. AROM hip flexion intact. AROM foot/ankle intact. Sensation in tact plantar/dorsal foot. Brisk capillary refill. Results & Data Results & Data Laboratory Results . Diagnostic Findings . Hip X-Ray 10/11/24 09:00 INTRAOPERATIVE RADIOGRAPH CLINICAL HISTORY: Right hip arthroplasty placement. Fluoro time: 19 seconds Ka,r: 4.47 mGy FINDINGS: A single spot fluoroscopic view of the right hip is correlated with x- rays dated 06/18/2024. A bipolar right hip arthroplasty is in near anatomic alignment. There is no evidence of acute fracture on the provided image. IMPRESSION: Intraoperative image from right hip arthroplasty placement. Electronically signed by: Ascencion Smith M.D. 10/11/2024 10:39 AM Hip/Pelvis X-Ray 10/11/24 11:05 SINGLE VIEW PELVIS; SINGLE VIEW RIGHT HIP CLINICAL HISTORY: Postoperative examination. FINDINGS: An AP portable view of the hips and pelvis with a crosstable lateral portable view of the right hip are compared to study dated 06/18/2024. A bipolar right hip arthroplasty is in near-anatomic alignment. No acute fracture is identified. There are expected postoperative changes overlying the right hip including subcutaneous gas and soft tissue swelling. Mild arthritic change is seen in the left hip. There are pelvic phleboliths. IMPRESSION: Expected postoperative findings status post right hip arthroplasty. No acute fracture is seen. ACT 112: Negative or not required by law. Electronically signed by: Ascencion Smith M.D. 10/11/2024 11:57 AM PG Care Time/CCT Total # of Minutes Spent Total Time Spent with Patient: Total time spent is greater than 50% in coordination of care (as documented) at patient's floor/unit and/or counseling patient: Coding Level of Care Code 86592 Post Operative Follow-Up Diagnoses S/P total right hip arthroplasty Z96.641
[2024-10-12 10:46] VITALS: PULSE 94
== END 2024-10-12 11:10 | disposition home or self-care (01) ==
LOC: 3E 07:10 → ASU 07:10